=== PATIENT | female | born 1980 | race Caucasian/White ===

== ENCOUNTER → 2017-02-20 | Outpatient (CLI) | payer BC ==
[~2017-02-20] MED LIST: IBUP600T44 PO; PERCOCET 5-325M1 TAB PO; PRENATA2 PO
== END | disposition home or self-care (01) ==
LOC: C.LABSPEC 17:27
PROVIDERS: ATTEND Physician Assistant
DX: T19.2XXA Foreign body in vulva and vagina, initial encounter (principal); X58.XXXA Exposure to other specified factors, initial encounter

== ENCOUNTER → 2017-05-09 | Outpatient (CLI) | payer BC | END | disposition home or self-care (01) | LOC: C.PAPS 09:38 | PROVIDERS: ATTEND Obstetrics & Gynecology | DX: Z01.419 Encounter for gynecological examination (general) (routine) without abnormal findings (principal) ==

== ENCOUNTER 2021-10-16 06:04 | Observation (INO) ==
--- NOTE | 2021-10-10 10:39 | Anesthesiology Consultation ---
Date of Service October 10, 2021 Assessment & Plan (1) Encounter for pre-operative examination: - check urine test STAT am DOS. - COVID screening: Per building architectural designer on 10/10/2021: Travel screen negative, no known COVID-19 positive contacts or current COVID-19 related symptoms in past 2 weeks. Surgeon arranging preop COVID testing, scheduled 10/12/2021. Awaiting results. Chart Review Chart Review: Acceptable Risk for Surgery and Patient NOT seen in Pre Admission Testing History Surgery Operation Date: 10/16/21 07:30 Proposed Procedures p Panniculectomy - Sanna Caceres MD Height/Weight Height: 5 ft 6 in Weight: 108.862 kg Allergies Allergy/AdvReac Type Severity Reaction Status Date / Time ragweed pollen Allergy Mild congestion, Verified 10/10/21 09:44 sneezing adhesive Allergy complete Verified 10/10/21 10:05 skin breakdown Medications Home Medications Medication Instructions Recorded Confirmed Last Taken sertraline 50 mg tablet 50 mg PO QAM 01/15/18 10/10/21 Unknown losartan 50 mg tablet 50 mg PO QAM 01/28/19 10/10/21 Unknown hydrochlorothiazide 25 mg tablet 25 mg PO QAM 08/23/21 10/10/21 Unknown oxycodone-acetaminophen 5 mg-325 1 tab PO Q4H PRN pain #18 tabs 09/26/21 10/10/21 Unknown mg tablet (Endocet) Past Medical History Medical History History of COVID-19 04/2020, no official test, but "lost taste and smell">resolved. Hypertension Past Family History Family History Grandfather (Paternal) Bone cancer Grandmother (Maternal) Breast cancer Father Hypertension Past Surgical History Surgical History S/P section x2 S/P LASIK surgery bilateral Social History Smoking Status: Never smoker Do You Dip or Chew Tobacco: No Hx Alcohol Use: Yes Alcohol type: wine alcohol intake frequency: a few times a month Hx Substance Use: No substance use type: does not use Lab Results Anesthesia Preop Results Results Anesthesia Widget: WBC 7.63 K/ul (4.8-10.8) 09/26/21 Hgb 12.8 g/dl (12.0-16.0) 09/26/21 Hct 39.1 % (34.1-44.9) 09/26/21 Plt 400 K/uL (130-400) 09/26/21 Na 140 mmol/L (136-145) 09/26/21 K 3.6 mmol/L (3.5-5.1) 09/26/21 Cl 103 mmol/L (98-107) 09/26/21 CO2 32 mmol/L (21-32) 09/26/21 BUN 14 mg/dl (6-23) 09/26/21 Creat 0.70 mg/dl (0.6-1.2) 09/26/21 Glucose Level 93 mg/dl (70-99(Fasting)) 09/26/21 PT 10.0 Seconds (9.0-12.0) 09/26/21 INR 0.9 (0.9-1.1) 09/26/21
[~2021-10-16 06:04] MED LIST changes: -IBUP600T44 PO; +LR 15ML/HR IV SCH; -PERCOCET 5-325M1 TAB PO; -PRENATA2 PO; +ceFAZolin 2000MG 2,000 MG/15 ML SYR IV SCH
--- NOTE | 2021-10-16 06:47 | History & Physical Bridge Note ---
Date of Service October 16, 2021 History & Physical Bridge Note I have examined the patient, reviewed the History & Physical and in the interval since the performance of the History & Physical I have noted the following changes of clinical significance: no changes noted
[2021-10-16] MEDS ORDERED: LIDOCAINE 1%/EPINEPHRINE 1:100,000 50 ML VIAL ONE (07:02)
[2021-10-16] MEDS ORDERED: LIDOCAINE 1% LOCAL 20 ML VIAL ONE (07:02)
[2021-10-16] MEDS ORDERED: BUPIVACAINE 0.25% 30 ML VIAL ONE (07:02)
[2021-10-16] MEDS ORDERED: EPINEPHrine INJ 1 MG/ML AMP ONE (07:02)
[2021-10-16] MEDS ORDERED: MIDAZOLAM HCL 1 MG/ML 2ML VIAL ONE (07:12)
[2021-10-16] MEDS ORDERED: fentaNYL citrate 100 MCG/2 ML VIAL ONE ×2 (07:12→09:08)
[2021-10-16] MEDS ORDERED: ROCURONIUM BROMIDE 10 MG/ML 5 ML VIAL IV ONE (07:14)
[2021-10-16] MEDS ORDERED: ONDANSETRON INJ 2 MG/ML 2 ML VIAL IV PRN ×2 (07:16→11:49)
[2021-10-16] MEDS ORDERED: ATROPINE SULFATE 0.1 MG/ML 10ML SYR IV PRN (07:16)
[2021-10-16] MEDS ORDERED: SCOPOLAMINE 1 MG TDSY TD ONE (07:16)
[2021-10-16] MEDS ORDERED: ePHEDrine sulfate 50 MG/ML AMP IV PRN (07:16)
[2021-10-16] MEDS ORDERED: HYDROmorphone INJ 1 MG/ML SYRINGE ONE (08:00)
[2021-10-16] MEDS ORDERED: ACETAMINOPHEN 1000 MG/100 ML IV IV ONE (08:05)
[2021-10-16] MEDS ORDERED: GLYCOPYRROLATE 0.2 MG/ML VIAL ONE (08:21)
[2021-10-16] MEDS ORDERED: NEOSTIGMINE METHYLSULFATE 1 MG/ML 10ML VIAL ONE (08:21)
[2021-10-16] MEDS ORDERED: LIDOCAINE 2% MPF LOCAL 5 ML VIAL INFIL ONE (08:21)
[2021-10-16] MEDS ORDERED: ONDANSETRON INJ 2 MG/ML 2 ML VIAL ONE (08:21)
[2021-10-16] MEDS ORDERED: PROPOFOL IV EMULSION 10 MG/ML 20 ML VIAL IV ONE (08:21)
[2021-10-16] MEDS ORDERED: TISSEEL FIBRIN SEALANT 10ML TOP ONE (10:12)
--- NOTE | 2021-10-16 11:14 | Post Operative Brief Note ---
PG Immediate Post Op with CF Date of Surgery October 16, 2021 Pre & Post Diagnosis Operation Date: 10/16/21 07:30 Pre-Op Diagnosis: Abdominal Pannus Post-Op Diagnosis: Abdominal Pannus I identified the patient and participated in the time-out.: Yes Procedure Operation Date: 10/16/21 07:30 Actual Procedures p Panniculectomy(Not Applicable) - Sanna Caceres MD Surgeon Sanna Caceres MD Business System Consultant Juli Barrett PA-C Estimated Blood Loss 75 Findings Consistent with Post-Op Diagnosis Specimens Specimen Description: A. Abdominal pannus Drains Zurita Catheter
[2021-10-16] MEDS: fentaNYL citrate 100 MCG/2 ML VIAL IV PRN ×2 (11:41→11:52)
[2021-10-16] MEDS ORDERED: ACETAMINOPHEN 325 MG TAB PO PRN (11:47)
[2021-10-16] MEDS ORDERED: oxyCODONE/ACETAMINOPHEN 5mg/325mg TAB PO PRN ×2 (11:47→16:34)
--- NOTE | 2021-10-16 12:28 | Anesthesiology Progress Note ---
Date of Service October 16, 2021 Anesthesia Post Procedure Vital Signs Vital Signs: Temp Pulse Pulse Resp BP BP Pulse Ox 10/16/21 12:10 66 20 138/74 100 10/16/21 12:00 71 16 136/73 100 10/16/21 11:50 68 14 134/81 100 10/16/21 12:20 97.5 F L 72 18 125/69 100 10/16/21 11:40 71 20 129/67 100 10/16/21 11:32 96.8 F L 63 16 123/65 100 10/16/21 06:22 98.1 F 77 20 129/91 99 O2 Del Method O2 Flow Rate 10/16/21 12:10 Room Air 10/16/21 12:00 Room Air 10/16/21 11:50 Oxymask 2 10/16/21 12:20 Room Air 10/16/21 11:40 Oxymask 6 10/16/21 11:32 Oxymask 6 10/16/21 06:22 Room Air Pain Intensity Abdomen: Pain Intensity: 2 Transfer of Care Handoff Completed per policy Notes Mental Status: alert / awake / arousable and participated in evaluation Patient Amnestic to Procedure: Yes Nausea / Vomiting: adequately controlled Pain: adequately controlled and improving with treatment Airway Patency, RR, SpO2: stable & adequate BP & HR: stable & adequate Hydration State: stable & adequate Anesthetic Complications: no major complications apparent and Pt Satisfied with anesthetic care
[2021-10-16] MEDS: oxyCODONE/ACETAMINOPHEN 5mg/325mg TAB PO PRN ×2 (13:57→21:30)
[2021-10-16] MEDS ORDERED: diphenhydrAMINE Capsule 25 MG CAP PO PRN (15:31)
[2021-10-16] MEDS ORDERED: PROMETHAZINE HCL 12.5 MG in SODIUM CHLORIDE 0.9% 50 ML IV PRN (15:31)
[2021-10-16] MEDS ORDERED: LORazepam 0.5 MG TAB PO PRN (15:31)
[2021-10-16] MEDS ORDERED: diphenhydrAMINE 50 MG/ML VIAL IV PRN (15:31)
[2021-10-16] MEDS ORDERED: MoRPHine SULFATE 2 MG/ML CARP IV PRN (15:41)
[2021-10-16] MEDS ORDERED: MoRPHine SULFATE 4 MG/ML 1 ML CARP\\VIAL IV PRN (15:41)
[2021-10-16] MEDS ORDERED: D5W AND 1/2NSS + 20MEQ KCL 20 MEQ/1,000 ML BAG IV SCH (15:45)
--- NOTE | 2021-10-16 15:59 | Operative Report ---
PG Post Operative Report Pre & Post Diagnosis Operation Date: 10/16/21 07:30 Pre-Op Diagnosis: Abdominal Pannus Post-Op Diagnosis: Abdominal Pannus I identified the patient and participated in the time-out.: Yes Procedure Operation Date: 10/16/21 07:30 Actual Procedures p Panniculectomy(Not Applicable) - Sanna Caceres MD Surgeon Sanna Caceres MD Equipment Oiler Juli Barrett PA-C Estimated Blood Loss 75 Findings Consistent with Post-Op Diagnosis Specimens abdominal pannus Drains GERONIMO x2 Anesthesia Type General Complications none Indications overhanging abdominal pannus Description of Procedure Risks, benefits, and alternatives of the procedure were explained to the patient who agreed and signed consent. She was identified and marked in the preoperative holding area. She was brought to the operating room where she was positioned supine and placed under general anesthesia without incident. Zurita catheter was placed. Surgical site was prepped and draped sterilely. A time-out procedure was performed. I reassessed my markings which included a lower horizontal abdominal incision with the midportion 6 cm above the vulvar commissure, which was the location of her prior Pfannenstiel incision. Incision was marked bilaterally to the ASIS. I began by injecting 1% lidocaine with epinephrine along the planned incision. The lower abdominal incision was made using a 15- blade scalpel to incise epidermis and superficial dermis followed by electrocautery to incise deep dermis, subcutaneous fat, Krystle's fascia down to the abdominal wall. Care was taken to bevel superiorly in order to avoid encountering the inguinal region. Electrocautery was used to elevate the anterior abdominal skin flap ligating the perforating vessels with 3-0 Vicryl ties and electrocautery. Dissection was carried up to the level of the umbilicus in the midline. At this point, it was fairly clear the wound closure would likely be too tight if I tried to dissect out the umbilicus, but if I performed infraumbilical panniculectomy without incising the umbilicus, the umbilicus would be in an abnormal anatomic position (just above the incision, about 7 cm from the vulvar commisure. I therefore elected to use a 15-blade scalpel was used to circumscribe the umbilicus so that further skin resection would be able to be performed and the umbilicus would be in a more anatomic location. A vertical midline incision was then made from the incision to the umbilicus and divided in the midline using electrocautery. The umbilicus was then dissected out using electrocautery down to abdominal wall. The umbilical stalk appeared viable throughout the procedure. In order to facilitate inset of the umbilicus, dissection was continued for about an additional 7 cm superior to the umbilicus. At this point, the bed was flexed. The mid portion of the superior skin flap was unable to be inset above the mons pubis due to significant tension on the wound, so I elected to keep a small vertical component of the incision by closing the umbilical incision site. 2-0 Vicryl was used to tack the superior flap to the inferior flap. Skin flaps were marked for excision. A 15-blade scalpel was used to make these incisions and the incision was deepened through dermis, subcutaneous fat, Krystle's fat using electrocautery. Subscarpal fat was resected directly. Prior to closure, a total of 10 mL of 0.25% Marcaine plain were injected into the fascia as well as along the incisions. A 15 Thai Ajit drains were placed in the wound bed and brought out through a separate stab incision in the mons pubis. The wounds were irrigated with NSS and Tisseel was sprayed to facilitate hemostasis and prevent seroma. The drains were sutured into place using 3-0 nylon. The umbilicus was brought out through an inverted triangular incision in the abdominal wall. Wound closure was then begun lateral to medial using 2-0 Vicryl Krystle's fascia sutures, 2-0 Vicryl deep dermal sutures, 2-0 PDO running superficial Quill suture, 3-0 Monocryl running subcuticular suture. The small vertical component was closed using 2-0 vicryl interrupted deep dermal suture, 3-0 PDS superficial dermal suture, 3-0 monocryl running subcuticular suture. Umbilicus was brought out through the inverted triangle incision and was sutured into place using 4-0 chromic half buried horizontal mattress sutures. The umbilicus was dressed using Xeroform and the incision was dressed using a Provena VAC due to her BMI of 41 and high risk for wound infection, dehiscence, etc. An abdominal binder was placed. The procedure was tolerated well. The patient was awakened and transferred to recovery in satisfactory condition. Juli Barrett PA-C was present and scrubbed throughout the entire procedure and was instrumental in providing retraction of the pannus and assisting in simultaneous wound closure. I attest to the content of the Intraoperative Record and any orders documented therein. Any exceptions are noted below.
[2021-10-16] MEDS ORDERED: ceFAZolin 2000MG 2,000 MG/15 ML SYR IV SCH (16:15)
--- NOTE | 2021-10-16 16:20 | Surgery Progress Note ---
Date of Service October 16, 2021 Assessment & Plan (1) S/P panniculectomy: Plan: Geri is s/p Panniculectomy. pain is controlled and she denies nausea. Wound vac is holding suction well. No signs of active bleeding on exam. Plan is to discharge to home tomorrow. Admission and Anticipated Discharge Date Admission Date: October 16, 2021 Subjective Geri is resting comfortable in her bed. Her friend, Debra, is at bedside. She denies pain or nausea. Physical Exam Constitutional: no acute distress Respiratory: normal respiratory effort; no respiratory distress and no labored breathing Gastrointestinal (Abdomen): Abdominal binder removed to view wound vac. Wound vac is holding suction well. No signs of active bleeding. GERONIMO drains in place with no clots in bulb. Abdominal binder reattached. Results & Data ([facility]) Vital Signs (Past 12 Hours) Vital Signs Temp Pulse Pulse Resp BP BP Pulse Ox 10/16/21 14:41 36.5 C 64 18 131/73 98 10/16/21 13:45 36.2 C L 61 18 116/63 97 10/16/21 13:15 36.2 C L 64 18 119/63 98 10/16/21 12:34 36.4 C L 64 18 143/71 H 100 10/16/21 12:10 66 20 138/74 100 10/16/21 12:00 71 16 136/73 100 10/16/21 11:50 68 14 134/81 100 10/16/21 12:30 59 L 18 137/74 100 10/16/21 12:20 36.4 C L 72 18 125/69 100 10/16/21 11:40 71 20 129/67 100 10/16/21 11:32 36.0 C L 63 16 123/65 100 10/16/21 06:22 36.7 C 77 20 129/91 99 O2 Del Method O2 Flow Rate 10/16/21 14:41 Room Air 10/16/21 13:45 Room Air 10/16/21 13:15 Room Air 10/16/21 12:34 Room Air 10/16/21 12:10 Room Air 10/16/21 12:00 Room Air 10/16/21 11:50 Oxymask 2 10/16/21 12:30 Room Air 10/16/21 12:20 Room Air 10/16/21 11:40 Oxymask 6 10/16/21 11:32 Oxymask 6 10/16/21 06:22 Room Air PG Care Time/CCT Total # of Minutes Spent Total Time Spent with Patient: Total time spent is greater than 50% in coordination of care (as documented) at patient's floor/unit and/or counseling patient: Coding Level of Care Code None Diagnoses S/P panniculectomy Z98.890
[2021-10-17] MEDS: oxyCODONE/ACETAMINOPHEN 5mg/325mg TAB PO PRN ×2 (04:42→13:38)
[2021-10-17] MEDS ORDERED: ENOXAPARIN INJ 40 MG/0.4 ML SYR SQ SCH (09:00)
[2021-10-17] MEDS ORDERED: hydroCHLOROthiazide 25 MG TAB PO SCH (09:00)
[2021-10-17] MEDS ORDERED: LOSARTAN POTASSIUM 50 MG TAB PO SCH (09:00)
[2021-10-17] MEDS ORDERED: SERTRALINE HCL 50 MG TABLET PO SCH (09:00)
[2021-10-17] MEDS ORDERED: MULTIVITAMIN TAB PO SCH (09:00)
--- NOTE | 2021-10-17 10:17 | Surgery Progress Note ---
Date of Service October 17, 2021 Assessment & Plan (1) S/P panniculectomy: Plan: Geri is POD #1. Her pain is well-controlled and her post-op nausea has resolved. She is tolerating a regular diet. She is able to void on her own. She has been ambulating both in her room and in the hallway without issue. On physical exam- wound vac in place and holding excellent suction. No signs of active bleeding. GERONIMO drains x2 in place with serosang drainage. We reviewed drain management at home. She is ok for discharge to home later today. Discharge instructions reviewed with her. Return precautions reviewed. She will follow-up in our office tomorrow. She was encouraged to call with any questions or concerns. Admission and Anticipated Discharge Date Admission Date: October 16, 2021 Subjective Geri is POD #1 s/p Panniculectomy. She is resting comfortably in bed. She does note that she had 1 episode of vomiting yesterday evening. She denies any nausea today. She reports that her pain is well-controlled. She has been able to ambulate Review of Systems Constitutional: no fever and no chills Cardiovascular: no chest pain Physical Exam Constitutional: WD/WN, vitals as above no acute distress Respiratory: normal respiratory effort; no respiratory distress and no labored breathing Gastrointestinal (Abdomen): Abdominal binder removed to view wound vac. Wound vac is holding suction well. No signs of active bleeding. GERONIMO drains in place with no clots in bulb. Approximately 25 cc of sersang drainage in each bulb. Abdominal binder reattached. Results & Data ([facility]) Vital Signs (Past 12 Hours) Vital Signs Temp Pulse Resp BP Pulse Ox O2 Del Method 10/17/21 07:29 36.6 C 88 16 127/80 97 Room Air 10/17/21 05:17 36.9 C 79 16 134/81 98 Room Air 10/16/21 23:46 37.1 C 85 16 146/84 H 98 Room Air PG Care Time/CCT Total # of Minutes Spent Total Time Spent with Patient: Total time spent is greater than 50% in coordination of care (as documented) at patient's floor/unit and/or counseling patient: Coding Level of Care Code None Diagnoses S/P panniculectomy Z98.890
--- NOTE | 2021-10-18 08:56 | Discharge Summary ---
Date of Service October 18, 2021 Admission HPI Per Admitting Provider Please see admission H and P. Admission Exam Per Admitting Provider Please see admission H and P. Principal Diagnosis Abdominal Pannus Discharge Data Allergies Allergy/AdvReac Type Severity Reaction Status Date / Time ragweed pollen Allergy Mild congestion, Verified 10/16/21 06:29 sneezing adhesive Allergy complete Verified 10/16/21 06:29 skin breakdown Procedures Performed Operation Date: 10/16/21 07:30 Actual Procedures p Panniculectomy(Not Applicable) - Sanna Caceres MD Hospital Course (1) S/P panniculectomy: Geri is a 41-year-old female with abdominal pannus. She was taken to the OR and underwent Panniculectomy. 2 GERONIMO drains were placed intraoperatively. Prevena wound vac was placed at the end of the procedure. There were no intraoperative complications. She was taken to the recovery area and transferred to Med/Surg. On POD #1, she was doing well. Her pain was controlled. Her post-op nausea had resolved. She was tolerating a regular diet and voiding on her own. She was able to ambulate both in her room and in the hallway without issue. On exam, her vital signs were stable and she was afebrile. On physical exam- Abdominal binder removed to view wound vac. Wound vac is holding suction well. No signs of active bleeding. GERONIMO drains in place with no clots in bulb. Approximately 25 cc of serosang drainage in each bulb. Abdominal binder reattached. She felt comfortable being discharged to home. Later in the afternoon, she was discharged to home with instructions to follow-up in the office in 1 day. All questions were answered. Total Time Total Time Spent Total Time Spent (In Minutes): 10 Discharge Plan Discharge Items Patient Disposition: Home - Self-Care Reason For Visit: Abdominal Pannus Discharge Diagnosis: Abdominal Pannus Activity: As commented below Non-emergency contact: Surgeon Call non-emergency contact if: you have any medication questions, your pain is not controlled, your temperature is above 101.5, your wound has increased redness and your wound has increased drainage Follow-up/Referrals: Sanna Caceres MD [Physician] - 10/18/21 11:00 am Mitesh Contreras DO [Primary Care Provider] - Diet: Regular Addtl Attending Provider Instructions: ACTIVITY RECOMMENDATIONS: __Normal activities X__No bending, lifting or straining. You must sleep with your head elevated. You are not permitted to lay flat. __No driving _X_Driving allowed when you are off pain medications _X_Walking permitted __You should have help at home for ___ days DRESSINGS: __No dressings required _X_Keep wound vac and surgical dressings dry/in place until first office visit __Remove dressings ___ and leave dressings off __Apply ice ___ days __Remove dressings and reapply garment __Apply antibiotic ointment (Bacitracin, Neosporin, etc) to wounds 3-4 times/day for 10 days BATHING: _X_Keep dressings dry _X_Sponge bathing permitted, but please keep surgical dressings dry. __Showering permitted _X_No swimming, hot tubs or soaking in a tub MEDICATIONS: Resume previous medications unless instructed otherwise by your surgeon. X__Do not use aspirin, Motrin, Advil or Ibuprofen as these may promote bleeding. Please use Tylenol. _X_Prescription(s) provided: Prescription for post-op pain medication provided at your last office visit. Please use as prescribed. OTHER INSTRUCTIONS: _X_Record drain output 2-3 times per day SPECIAL CARE INSTRUCTIONS: * It is normal to have a mild fever after surgery. If your temperature is higher than 101.5 degrees F, please call the office at [phone]. * Constipation is a typical side effect of pain medication. An [id number] stool softener will help relieve this. * Leaking around surgical drains may occur and should not cause concern. Sometimes these drains become clogged. If this happens, remove the bulb and milk the clot out of the tube, then replace the bulb. * Drainage from wounds after liposuction is normal and should be expected. Garments will become soiled. You should protect furniture and bedding. This drainage should mostly subside within 2-3 days. Leave garments in place unless instructed to remove them. * If you have unusual drainage from a wound or are concerned you have an infection or have any questions or concerns, please call the office at [phone]. FOLLOW UP VISIT: If not already scheduled, please call the office, , when you return home after surgery to schedule an appointment to be seen in _1__ day. Pending Studies at Discharge: Yes Studies:: Pathology report. Stand-Alone Forms: Anesthesia/Sedation, Adult, [facility] Medications and DC Order Prescriptions: Continued hydrochlorothiazide 25 mg tablet 25 mg PO QAM oxycodone-acetaminophen [Endocet] 5-325 mg tablet 1 tab PO Q4H PRN (Reason: pain) Qty: 18 0RF Rx Instructions: initial therapy losartan 50 mg tablet 50 mg PO QAM sertraline 50 mg Tablet 50 mg PO QAM Discharge Orders: Discharge Order (Routine); Ordered 10/17/21 Ordered By: Juli Blair/Other Patient Handouts: Preventing Deep Vein Thrombosis Admission Data Admit Date/Time: 10/16/21 13:41 Attending Provider: Sanna Caceres Admit Provider: Sanna Caceres Primary Care Provider: Mitesh Contreras Other Interventions: Discharge Summary Assessment (RN) Last Done: 10/17/21 10:49 Coding Level of Care Code 75024 OBS Care - Discharge Diagnoses S/P panniculectomy Z98.890
== END 2021-10-17 16:45 | disposition home or self-care (01) ==
LOC: 3E 06:04 → ASU 06:04
DX: Z20.822 Contact with and (suspected) exposure to COVID-19; Z01.812 Encounter for preprocedural laboratory examination; E65 Localized adiposity; Z79.899 Other long term (current) drug therapy